=== PATIENT | male | born 1980 | race Caucasian/White ===

== ENCOUNTER 2019-04-01 16:27 | Emergency (ER) | payer BC, OTHER ==
[2019-04-01] MEDS ORDERED: Sodium Chloride 0.9% 2.5 ML Syringe FLUSH PRN (16:29)
[2019-04-01] MEDS ORDERED: Aspirin 81 MG Tab.Chew PO ONE (16:29)
[2019-04-01] MEDS ORDERED: Sodium Chloride 0.9% 10 ML Syringe FLUSH PRN (16:29)
--- NOTE | 2019-04-01 16:38 | EDM.PDOC ---
ED HPI GENERAL MEDICAL PROBLEM - General Stated Complaint: CHEST PAIN Time Seen by Provider: 04/01/19 16:30 Source of Information: Reports: Patient History Limitations: Reports: No Limitations - History of Present Illness INITIAL COMMENTS - FREE TEXT/NARRATIVE: HISTORY AND PHYSICAL: History of present illness: Patient is a 38-year-old male who presents to the emergency room with complaints of chest pain started approximately 1-2 hours prior to arrival. He states that the pain was sudden and is associated with some left-sided upper extremity tingling. He states he came to the emergency room as he is "pretty sure I'm having a heart attack". Patient denies any fever, chills, headache, change in vision, syncope or near syncope. Denies any back pain, shortness of breath or cough. Denies any abdominal pain, nausea, vomiting, diarrhea, constipation or dysuria. Has not noted any blood in urine or stool. Patient has been eating and drinking appropriately. He does not have any personal history of heart disease. No significant family history of heart disease. Review of systems: As per history of present illness and below otherwise all systems reviewed and negative. Past medical history: As per history of present illness and as reviewed below otherwise noncontributory. Surgical history: As per history of present illness and as reviewed below otherwise noncontributory. Social history: See social history for further information Family history: As per history of present illness and as reviewed below otherwise noncontributory. Physical exam: General: Well-developed and well-nourished 38-year-old male. Alert and oriented. Nontoxic appearing and in no acute distress. HEENT: Atraumatic, normocephalic, pupils equal and reactive bilaterally, negative for conjunctival pallor or scleral icterus, mucous membranes moist, TMs normal bilaterally, throat clear, neck supple, nontender, trachea midline. No drooling or trismus noted. No meningeal signs. No hot potato voice noted. Lungs: Clear to auscultation, breath sounds equal bilaterally, chest nontender. Heart: S1S2, regular rate and rhythm without overt murmur Abdomen: Soft, nondistended, nontender. Negative for masses or hepatosplenomegaly. Negative for costovertebral tenderness. Pelvis: Stable nontender. Skin: Intact, warm, dry. No lesions or rashes noted. Extremities: Atraumatic, moves all extremities per self without difficulty or deficits, negative for cords or calf pain. Neurovascular unremarkable. Neuro: Awake, alert, oriented. Cranial nerves II through XII unremarkable. Cerebellum unremarkable. Motor and sensory unremarkable throughout. Exam nonfocal. Notes: Chest x-ray is unremarkable. No significant findings on EKG. Lab work is unremarkable. He is currently pain free. VSS. Signs and symptoms that would prompt him to return to the ED were reviewed and discussed. Supportive care measures were reviewed and discussed. He voices understanding and is agreeable to plan of care. Denies any further questions or concerns at this time. Diagnostics: CBC, CMP, Troponin, EKG, Chest x-ray Therapeutics: IV fluids, Aspirin, toradol Prescription: None Impression: Chest pain, nonspecific Plan: 1. Avoid any stimulants (coffee, supplements, etc..) 2. Aspirin 81mg once daily 3. Follow up with your primary care provider as we discussed. 4. Return to the ED as needed as discussed. Definitive disposition and diagnosis as appropriate pending reevaluation and review of above. chest Pain Score (Numeric/FACES): 5 - Related Data Allergies Allergy/AdvReac Type Severity Reaction Status Date / Time No Known Allergies Allergy Verified 04/01/19 16:33 Home Meds: Home Meds Gym Medication 04/01/19 [History] ED ROS GENERAL - Review of Systems Review Of Systems: ROS reveals no pertinent complaints other than HPI. ED EXAM, GENERAL - Physical Exam Exam: See Below (See dictation) Course - Vital Signs Last Recorded V/S: Last Vital Signs Temp 97.0 F 04/01/19 16:31 Pulse 72 04/01/19 17:15 Resp 16 04/01/19 17:00 BP 120/62 04/01/19 17:15 Pulse Ox 97 04/01/19 17:15 - Orders/Labs/Meds Orders: Active Orders 24 hr Category Date Time Status EKG Documentation Completion [RC] STAT Care 04/01/19 16:29 Active Sodium Chloride 0.9% [Normal Saline] 1,000 ml Med 04/01/19 17:05 Active IV STAT Sodium Chloride 0.9% [Saline Flush] Med 04/01/19 16:29 Active 10 ml FLUSH ASDIRECTED PRN Sodium Chloride 0.9% [Saline Flush] Med 04/01/19 16:29 Active 2.5 ml FLUSH ASDIRECTED PRN Saline Lock Insert [OM.PC] Stat Oth 04/01/19 16:29 Ordered Medication Orders Sodium Chloride (Normal Saline) 1,000 mls @ 999 mls/hr IV STAT ONE Stop: 04/01/19 18:05 Last Admin: 04/01/19 17:22 Dose: 999 mls/hr Sodium Chloride (Saline Flush) 10 ml FLUSH ASDIRECTED PRN PRN Reason: Keep Vein Open Last Admin: 04/01/19 16:40 Dose: 10 ml Sodium Chloride (Saline Flush) 2.5 ml FLUSH ASDIRECTED PRN PRN Reason: Keep Vein Open Last Admin: 04/01/19 16:40 Dose: 2.5 ml Labs: Laboratory Tests 04/01/19 04/01/19 Range/Units 16:34 16:34 WBC 4.99 (4.0-11.0) K/uL RBC 4.82 (4.50-5.90) M/uL Hgb 14.8 (13.0-17.0) g/dL Hct 44.5 (38.0-50.0) % MCV 92.3 (80.0-98.0) fL MCH 30.7 (27.0-32.0) pg MCHC 33.3 (31.0-37.0) g/dL RDW Std Deviation 45.2 (28.0-62.0) fl RDW Coeff of Etta 13 (11.0-15.0) % Plt Count 178 (150-400) K/uL MPV 10.60 (7.40-12.00) fL Neut % (Auto) 49.5 (48.0-80.0) % Lymph % (Auto) 40.1 H (16.0-40.0) % Pacific % (Auto) 8.8 (0.0-15.0) % Eos % (Auto) 1.4 (0.0-7.0) % Baso % (Auto) 0.2 (0.0-1.5) % Neut # (Auto) 2.5 (1.4-5.7) K/uL Lymph # (Auto) 2.0 (0.6-2.4) K/uL Pacific # (Auto) 0.4 (0.0-0.8) K/uL Eos # (Auto) 0.1 (0.0-0.7) K/uL Baso # (Auto) 0.0 (0.0-0.1) K/uL Nucleated RBC % 0.0 /100WBC Nucleated RBCs # 0 K/uL Sodium 143 (136-148) mmol/L Potassium 3.4 L (3.5-5.1) mmol/L Chloride 105 (98-107) mmol/L Carbon Dioxide 26.8 (21.0-32.0) mmol/L BUN 19 H (7.0-18.0) mg/dL Creatinine 1.2 (0.8-1.3) mg/dL Est Cr Clr Drug Dosing 89.77 mL/min Estimated GFR (MDRD) > 60.0 ml/min Glucose 105 (74-106) mg/dL Calcium 9.3 (8.5-10.1) mg/dL Total Bilirubin 1.2 H (0.2-1.0) mg/dL AST 19 (15-37) IU/L ALT 26 (14-63) IU/L Alkaline Phosphatase 40 L (46-116) U/L Troponin I < 0.050 (0.000-0.056) ng/mL Total Protein 7.3 (6.4-8.2) g/dL Albumin 4.1 (3.4-5.0) g/dL Globulin 3.2 (2.6-4.0) g/dL Albumin/Globulin Ratio 1.3 (0.9-1.6) Meds: Medications Generic Name Dose Route Start Last Admin Trade Name Freq PRN Reason Stop Dose Admin Sodium Chloride 1,000 mls @ 999 mls/hr 04/01/19 17:05 04/01/19 17:22 Normal Saline IV 04/01/19 18:05 999 mls/hr STAT ONE Administration Sodium Chloride 10 ml 04/01/19 16:29 04/01/19 16:40 Saline Flush FLUSH 10 ml ASDIRECTED PRN Administration Keep Vein Open Sodium Chloride 2.5 ml 04/01/19 16:29 04/01/19 16:40 Saline Flush FLUSH 2.5 ml ASDIRECTED PRN Administration Keep Vein Open Discontinued Medications Generic Name Dose Route Start Last Admin Trade Name Freq PRN Reason Stop Dose Admin Aspirin 324 mg 04/01/19 16:29 04/01/19 16:40 Aspirin PO 04/01/19 16:30 324 mg ONETIME ONE Administration Ketorolac Tromethamine 30 mg 04/01/19 17:05 04/01/19 17:22 Toradol IVPUSH 04/01/19 17:06 30 mg ONETIME ONE Administration Departure - Departure Time of Disposition: 17:52 Disposition: Home, Self-Care 01 Clinical Impression: Chest pain Qualifiers: Chest pain type: unspecified Qualified Code(s): R07.9 - Chest pain, unspecified Instructions: Nonspecific Chest Pain, [id number] Referrals: PCP,Unknown [Primary Care Provider] - Additional Instructions: The following information is given to patients seen in the emergency department who are being discharged to home. This information is to outline your options for follow-up care. We provide all patients seen in our emergency department with a follow-up referral. The need for follow-up, as well as the timing and circumstances, are variable depending upon the specifics of your emergency department visit. If you don't have a primary care physician on staff, we will provide you with a referral. We always advise you to contact your personal physician following an emergency department visit to inform them of the circumstance of the visit and for follow-up with them and/or the need for any referrals to a consulting specialist. The emergency department will also refer you to a specialist when appropriate. This referral assures that you have the opportunity for follow-up care with a specialist. All of these measure are taken in an effort to provide you with optimal care, which includes your follow-up. Under all circumstances we always encourage you to contact your private physician who remains a resource for coordinating your care. When calling for follow-up care, please make the office aware that this follow-up is from your recent emergency room visit. If for any reason you are refused follow-up, please contact the [facility] Emergency Department at and asked to speak to the emergency department charge nurse. [facility] [address] [place] [id number] [id number] 1. Avoid any stimulants (coffee, supplements, etc..) 2. Aspirin 81mg once daily 3. Follow up with your primary care provider as we discussed. 4. Return to the ED as needed as discussed. - My Orders Last 24 Hours: My Active Orders 04/01/19 16:29 EKG Documentation Completion [RC] STAT Sodium Chloride 0.9% [Saline Flush] 10 ml FLUSH ASDIRECTED PRN Sodium Chloride 0.9% [Saline Flush] 2.5 ml FLUSH ASDIRECTED PRN Saline Lock Insert [OM.PC] Stat 04/01/19 17:05 Sodium Chloride 0.9% [Normal Saline] 1,000 ml IV STAT - Assessment/Plan Last 24 Hours: My Active Orders 04/01/19 16:29 EKG Documentation Completion [RC] STAT Sodium Chloride 0.9% [Saline Flush] 10 ml FLUSH ASDIRECTED PRN Sodium Chloride 0.9% [Saline Flush] 2.5 ml FLUSH ASDIRECTED PRN Saline Lock Insert [OM.PC] Stat 04/01/19 17:05 Sodium Chloride 0.9% [Normal Saline] 1,000 ml IV STAT
[2019-04-01] MEDS ORDERED: Ketorolac 30 MG/ML SDV IVPUSH ONE (17:05)
[2019-04-01] MEDS ORDERED: Sodium Chloride 0.9% 1,000 ML IV ONE (17:05)
--- NOTE | 2019-04-01 17:15 | CR ---
INDICATION: Chest pain TECHNIQUE: Chest 1 view. COMPARISON: None. FINDINGS: Cardiovascular and mediastinum: Heart size and vasculature are normal in caliber and appearance. Mediastinum is within normal limits. Lungs and pleural space: Lungs are clear. No sign of infiltrate or mass. No sign of pleural effusion. No pneumothorax. Bones and soft tissues: No significant findings. IMPRESSION: Unremarkable chest. Dictated by: Joe Luo MD @ 04/01/2019 17:13:15 (Electronically Signed)
[2019-04-01 17:51] LABS: BLOOD UREA NITROGEN,BUN 19 mg/dL (7.0-18.0); CARBON DIOXIDE,CO2 26.8 mmol/L (21.0-32.0); CHLORIDE,CL 105 mmol/L (98-107); GLUCOSE RANDOM 105 mg/dL (74-106); POTASSIUM,K 3.4 mmol/L (3.5-5.1); SODIUM,NA 143 mmol/L (136-148)
[2019-04-01 18:10] VITALS: BP 116/68; PULSE 74
== END 2019-04-01 18:10 | disposition home or self-care (01) ==
LOC: MW.ED 16:27
DX: R07.9 Chest pain, unspecified (principal)
CPT/HCPCS: 71045; 80053; 84484; 85025; 93005; 96361; 96374; 99285; A9270; J1885; J7040; 99284

== ENCOUNTER 2019-04-19 23:52 | Emergency (ER) | payer BC ==
[2019-04-20] MEDS ORDERED: Sodium Chloride 0.9% 10 ML Syringe FLUSH PRN (00:29)
[2019-04-20] MEDS ORDERED: Sodium Chloride 0.9% 2.5 ML Syringe FLUSH PRN (00:29)
[2019-04-20] MEDS ORDERED: Ketorolac 30 MG/ML SDV IVPUSH ONE (00:29)
[2019-04-20] MEDS ORDERED: Pantoprazole 40 MG Vial IVPUSH ONE (00:29)
--- NOTE | 2019-04-20 00:32 | EDM.PDOC ---
ED HPI GENERAL MEDICAL PROBLEM - General Chief Complaint: Chest Pain Stated Complaint: CHEST PAINS AND NUMBNESS Time Seen by Provider: 04/20/19 00:18 - History of Present Illness INITIAL COMMENTS - FREE TEXT/NARRATIVE: HISTORY AND PHYSICAL: History of present illness: The patient is a 38-year-old male with no significant medical history who was seen here about 2 weeks ago for nonspecific chest pain and had a full workup and was referred to outpatient as there was no definitive diagnosis. The patient was separately seen at [facility] and had a repeat workup and was told that he had GERD/acid reflux and started on Zantac. The patient now presents saying that for the last 2-3 weeks he has had this constant midsternal chest pressure pain which has never gone away and it seems to get worse when he eats or drinks and feels like things are getting hung up in his upper chest. He is not vomiting and he can eat and drink but he says that there is more discomfort with it. He has no abdominal pain no flank or back pain and no fevers chills or cough and congestion. The patient has no leg pain or swelling and says that over the last few days he started coughing which is now productive of chunky phlegm which is yellow and green in color with occasional blood flecks. Is not a smoker but he is around Lum[employer] exposure and his work environment. He has no ill contacts. He does not feel short of breath he just describes this constant discomfort which is in the middle of his chest and bilaterally. It Does not localize right or left Per the computer the patient was seen here on April 01 and I reviewed that chart. Review of systems: As per history of present illness and below otherwise all systems reviewed and negative. Past medical history: As per history of present illness and as reviewed below otherwise noncontributory. Surgical history: As per history of present illness and as reviewed below otherwise noncontributory. Social history: No reported history of drug or alcohol abuse. Family history: As per history of present illness and as reviewed below otherwise noncontributory. Physical exam: General: Well-developed well-nourished man who is nontoxic and vital signs are reviewed by me. Is not breathless on my evaluation he is currently drinking water without difficulty HEENT: Atraumatic, normocephalic, pupils reactive, negative for conjunctival pallor or scleral icterus, mucous membranes moist, throat clear, neck supple, nontender, trachea midline. Lungs: Clear to auscultation, breath sounds equal bilaterally, chest nontender. There is no wheezing stridor or work of breathing Heart: S1S2, regular in rhythm no overt murmurs Abdomen: Soft, nondistended, nontender. Negative for masses or hepatosplenomegaly. Negative for costovertebral tenderness. Pelvis: Stable nontender. Genitourinary: Deferred. Rectal: Deferred. Extremities: Atraumatic, negative for cords or calf pain. Neurovascular unremarkable. No pedal edema Neuro: Awake, alert, oriented. Cranial nerves II through XII unremarkable. Cerebellum unremarkable. Motor and sensory unremarkable throughout. Exam nonfocal. Diagnostics: EKG rapid strep and influenza swab CBC CMP troponin amylase lipase CTA of the chest Therapeutics: IV O2 monitor pulse oximetry, Toradol, Protonix,spacer and spacer teaching I discussed with the patient at length my thought process with his workup and the testing results. At this point he has no significant findings that merit admission but I have discussed with him that he likely has a component of bronchitis currently and he will need more workup for some of the more chronic issues that have been going on for several weeks including this atypical chest pain in his sensation of spasm when he eats and drinks fluids. I will place his name on the expedited follow-up list and have advised him to call the clinic for further care. I have given him a spacer as well as a Ventolin inhaler a burst of steroids and a Z-Johnson. I told him to continue his ranitidine and I discussed some other tests that may need to be performed going forward to further evaluate this and build on today's workup. He states understanding Impression: Atypical chest pain subacute, bronchitis Definitive disposition and diagnosis as appropriate pending reevaluation and review of above. chest Pain Score (Numeric/FACES): 7 - Related Data Allergies Allergy/AdvReac Type Severity Reaction Status Date / Time No Known Allergies Allergy Verified 04/20/19 00:04 Home Meds: Home Meds Ranitidine [Zantac] 150 mg PO BID 04/20/19 [History] Past Medical History HEENT History: Reports: None Cardiovascular History: Reports: None Respiratory History: Reports: None Gastrointestinal History: Reports: GERD Genitourinary History: Reports: None Musculoskeletal History: Reports: Other (See Below) Other Musculoskeletal History: R radial head fx Neurological History: Reports: None Psychiatric History: Reports: Anxiety Endocrine/Metabolic History: Reports: None Hematologic History: Reports: None Immunologic History: Reports: None Oncologic (Cancer) History: Reports: None Dermatologic History: Reports: None - Infectious Disease History Infectious Disease History: Reports: Chicken Pox - Past Surgical History Head Surgeries/Procedures: Reports: None HEENT Surgical History: Reports: None Cardiovascular Surgical History: Reports: None Respiratory Surgical History: Reports: None GI Surgical History: Reports: None Male Surgical History: Reports: None Endocrine Surgical History: Reports: None Neurological Surgical History: Reports: None Musculoskeletal Surgical History: Reports: Other (See Below) Other Musculoskeletal Surgeries/Procedures:: R radius Oncologic Surgical History: Reports: None Dermatological Surgical History: Reports: None Social & Family History - Family History Family Medical History: Noncontributory - Tobacco Use Smoking Status *Q: Never Smoker Second Hand Smoke Exposure: No - Caffeine Use Caffeine Use: Reports: None - Recreational Drug Use Recreational Drug Use: No ED ROS GENERAL - Review of Systems Review Of Systems: ROS reveals no pertinent complaints other than HPI. ED EXAM, GENERAL - Physical Exam Exam: See Below (See dictation) Course - Vital Signs Last Recorded V/S: Last Vital Signs Temp 35.9 C 04/20/19 00:00 Pulse 63 04/20/19 02:09 Resp 18 04/20/19 02:09 BP 130/79 04/20/19 02:09 Pulse Ox 98 04/20/19 02:09 - Orders/Labs/Meds Orders: Active Orders 24 hr Category Date Time Status Pulse Oximetry [RC] ASDIRECTED Care 04/20/19 00:28 Active CULTURE STREP A CONFIRMATION [RM] Stat Lab 04/20/19 00:08 Results STREP SCRN A RAPID W CULT CONF [RM] Stat Lab 04/20/19 00:08 Results Sodium Chloride 0.9% [Saline Flush] Med 04/20/19 00:29 Active 10 ml FLUSH ASDIRECTED PRN Sodium Chloride 0.9% [Saline Flush] Med 04/20/19 00:29 Active 2.5 ml FLUSH ASDIRECTED PRN Saline Lock Insert [OM.PC] Stat Oth 04/20/19 00:28 Ordered Medication Orders Sodium Chloride (Saline Flush) 10 ml FLUSH ASDIRECTED PRN PRN Reason: Keep Vein Open Sodium Chloride (Saline Flush) 2.5 ml FLUSH ASDIRECTED PRN PRN Reason: Keep Vein Open Labs: Laboratory Tests 04/20/19 04/20/19 Range/Units 00:45 00:45 WBC 6.61 (4.0-11.0) K/uL RBC 4.63 (4.50-5.90) M/uL Hgb 14.5 (13.0-17.0) g/dL Hct 42.2 (38.0-50.0) % MCV 91.1 (80.0-98.0) fL MCH 31.3 (27.0-32.0) pg MCHC 34.4 (31.0-37.0) g/dL RDW Std Deviation 42.1 (28.0-62.0) fl RDW Coeff of Etta 13 (11.0-15.0) % Plt Count 186 (150-400) K/uL MPV 10.50 (7.40-12.00) fL Add Manual Diff YES Neutrophils % (Manual) 47 L (48.0-80.0) % Lymphocytes % (Manual) 47 H (16.0-40.0) % Monocytes % (Manual) 6 (0.0-15.0) % Absolute Seg Neuts 3.1 (1.4-5.7) Lymphocytes # (Manual) 3.1 H (0.6-2.4) Monocytes # (Manual) 0.4 (0.0-0.8) Sodium 142 (136-148) mmol/L Potassium 3.7 (3.5-5.1) mmol/L Chloride 106 (98-107) mmol/L Carbon Dioxide 28.8 (21.0-32.0) mmol/L BUN 12 (7.0-18.0) mg/dL Creatinine 1.4 H (0.8-1.3) mg/dL Est Cr Clr Drug Dosing 76.94 mL/min Estimated GFR (MDRD) 57.0 ml/min Glucose 96 (74-106) mg/dL Calcium 8.4 L (8.5-10.1) mg/dL Total Bilirubin 1.0 (0.2-1.0) mg/dL AST 18 (15-37) IU/L ALT 19 (14-63) IU/L Alkaline Phosphatase 45 L (46-116) U/L Troponin I < 0.050 (0.000-0.056) ng/mL Total Protein 7.3 (6.4-8.2) g/dL Albumin 3.6 (3.4-5.0) g/dL Globulin 3.7 (2.6-4.0) g/dL Albumin/Globulin Ratio 1.0 (0.9-1.6) Amylase 63 (25-115) U/L Lipase 101 (73-393) U/L Meds: Medications Generic Name Dose Route Start Last Admin Trade Name Freq PRN Reason Stop Dose Admin Sodium Chloride 10 ml 04/20/19 00:29 Saline Flush FLUSH ASDIRECTED PRN Keep Vein Open Sodium Chloride 2.5 ml 04/20/19 00:29 Saline Flush FLUSH ASDIRECTED PRN Keep Vein Open Discontinued Medications Generic Name Dose Route Start Last Admin Trade Name Freq PRN Reason Stop Dose Admin Sodium Chloride Confirm 04/20/19 00:50 04/20/19 00:56 Normal Saline Administered 04/20/19 00:51 20 mls/hr Dose Administration 20 mls @ as directed .ROUTE .STK-MED ONE Iopamidol 100 ml 04/20/19 01:56 04/20/19 01:56 Isovue Multipack-370 (76%) IVPUSH 04/20/19 01:57 100 ml ONETIME STA Administration Ketorolac Tromethamine 30 mg 04/20/19 00:29 04/20/19 00:53 Toradol IVPUSH 04/20/19 00:30 30 mg ONETIME ONE Administration Pantoprazole Sodium 80 mg 04/20/19 00:29 04/20/19 00:56 Protonix Iv IVPUSH 04/20/19 00:30 80 mg .BOLUS ONE Administration Departure - Departure Time of Disposition: 02:47 Disposition: Home, Self-Care 01 Condition: Good Clinical Impression: Atypical chest pain, Bronchitis - Discharge Information Forms: ED Department Discharge Additional Instructions: The following information is given to patients seen in the emergency department who are being discharged to home. This information is to outline your options for follow-up care. We provide all patients seen in our emergency department with a follow-up referral. The need for follow-up, as well as the timing and circumstances, are variable depending upon the specifics of your emergency department visit. If you don't have a primary care physician on staff, we will provide you with a referral. We always advise you to contact your personal physician following an emergency department visit to inform them of the circumstance of the visit and for follow-up with them and/or the need for any referrals to a consulting specialist. The emergency department will also refer you to a specialist when appropriate. This referral assures that you have the opportunity for followup care with a specialist. All of these measure are taken in an effort to provide you with optimal care, which includes your followup. Under all circumstances we always encourage you to contact your private physician who remains a resource for coordinating your care. When calling for followup care, please make the office aware that this follow-up is from your recent emergency room visit. If for any reason you are refused follow-up, please contact the [facility] emergency department at and ask to speak to the emergency department charge nurse. [facility] Primary care- [place] [address] Push hydration and use all medications as prescribed for the bronchitis symptoms that you're having. Please call in the morning and schedule a follow- up appointment in the clinic making sure to tell them that you're in the ER and needed next day to follow-up within the week. Please continue to monitor her symptoms and start a symptom journal writing whenever you're having symptoms of chest pain or difficulty swallowing or trouble with movement of food and water and/or abdominal pain. This symptom journal will help your provider and direct the next step in your follow-up care. Return to ER as needed and as discussed - My Orders Last 24 Hours: My Active Orders 04/20/19 00:08 CULTURE STREP A CONFIRMATION [RM] Stat STREP SCRN A RAPID W CULT CONF [RM] Stat 04/20/19 00:28 Pulse Oximetry [RC] ASDIRECTED Saline Lock Insert [OM.PC] Stat 04/20/19 00:29 Sodium Chloride 0.9% [Saline Flush] 10 ml FLUSH ASDIRECTED PRN Sodium Chloride 0.9% [Saline Flush] 2.5 ml FLUSH ASDIRECTED PRN - Assessment/Plan Last 24 Hours: My Active Orders 04/20/19 00:08 CULTURE STREP A CONFIRMATION [RM] Stat STREP SCRN A RAPID W CULT CONF [RM] Stat 04/20/19 00:28 Pulse Oximetry [RC] ASDIRECTED Saline Lock Insert [OM.PC] Stat 04/20/19 00:29 Sodium Chloride 0.9% [Saline Flush] 10 ml FLUSH ASDIRECTED PRN Sodium Chloride 0.9% [Saline Flush] 2.5 ml FLUSH ASDIRECTED PRN
[2019-04-20] MEDS ORDERED: Sodium Chloride 0.9% 20 ML ONE (00:50)
[2019-04-20 01:19] LABS: BLOOD UREA NITROGEN,BUN 12 mg/dL (7.0-18.0); CARBON DIOXIDE,CO2 28.8 mmol/L (21.0-32.0); CHLORIDE,CL 106 mmol/L (98-107); GLUCOSE RANDOM 96 mg/dL (74-106); LIPASE 101 U/L (73-393); POTASSIUM,K 3.7 mmol/L (3.5-5.1); SODIUM,NA 142 mmol/L (136-148)
[2019-04-20] MEDS ORDERED: Iopamidol 755 MG/ML 500 ML Multipack Bottle IVPUSH STA (01:56)
--- NOTE | 2019-04-20 02:34 | CT ---
INDICATION: Chest pain for 2 weeks+, patient states "heavy pressure" on chest, lost appetite, pain worse after eating and feels like he is almost choking when swallowing. CT CHEST WITH CONTRAST TECHNIQUE: Multidetector axial CT imaging was performed through the chest following intravenous contrast administration using 80mL Isovue 370. COMPARISON: None. FINDINGS: No filling defects are identified in the pulmonary arterial tree to suggest pulmonary emboli. The thoracic aorta shows normal caliber. The lungs are clear aside from mild dependent atelectasis. There are hilar lymph node calcifications. No pleural effusions. No mediastinal masses or abnormally enlarged lymph nodes. The heart appears within normal limits. Visualized bones show no significant findings. Included portions of the upper abdomen are unremarkable. IMPRESSION: No pulmonary emboli or other acute intrathoracic abnormalities identified. BOOGIE MOSES MD [employer] Dictated by: Adrien Moses MD @ 04/20/2019 02:33:47 (Electronically Signed)
[2019-04-20 03:04] VITALS: BP 122/70; PULSE 70
== END 2019-04-20 03:00 | disposition home or self-care (01) ==
LOC: MW.ED 23:52
DX: R07.89 Other chest pain (principal); J40 Bronchitis, not specified as acute or chronic; K21.9 Gastro-esophageal reflux disease without esophagitis; Z79.899 Other long term (current) drug therapy
CPT/HCPCS: 36415; 71275; 80053; 82150; 83690; 84484; 85025; 87081; 87804; 87880; 93005; 96374; 96375; 99285; C9113; J1885; Q9967; 99284